=== PATIENT | male | born 1955 | race Caucasian/White ===

== ENCOUNTER → 2016-12-10 | Emergency (ER) | payer OTHER ==
--- NOTE | 2016-12-10 21:28 | PDOC ---
History of Present Illness - General History Source: Patient Exam Limitations: No Limitations - History of Present Illness Initial Comments: 12/10/16 21:44 The patient is a 61 year old male with a significant past medical history of diabetes and asthma who presents to the ED, via EMS, s/p injury earlier today. The patient reports he was reaching for something on a high shelf when the tip of a computer screen fell onto the top of his head 2 hours ago. Patient reports a laceration with associated pain to the top of his head. Denies headache. Denies loss of consciousness. Denies nausea or vomiting. Denies change in mental status. Denies any other symptoms. <Johnathan Golden - Last Filed: 12/10/16 21:44> <Emmy Moran - Last Filed: 12/10/16 23:27> - General Stated Complaint: HEAD INJURY Time Seen by Provider: 12/10/16 21:09 Past History <Johnathan Golden - Last Filed: 12/10/16 21:44> - Past Medical History Asthma: Yes Cancer: Yes Cardiac Disorders: Yes Diabetes: Yes GI Disorders: Yes (GERD) HTN: Yes Hypercholesterolemia: Yes Psychiatric Problems: Yes - Suicide/Smoking/Psychosocial Hx Smoking Status: No Smoking History: Former smoker Have you smoked in the past 12 months: No Number of Cigarettes Smoked Daily: 0 Hx Alcohol Use: No Drug/Substance Use Hx: No <Emmy Moran - Last Filed: 12/10/16 23:27> - Past Medical History Allergies/Adverse Reactions: Allergies Allergy/AdvReac Type Severity Reaction Status Date / Time No Known Allergies Allergy Verified 12/10/16 22:51 Home Medications: Ambulatory Orders Albuterol 0.083% Nebulizer Isabel [Ventolin 0.083%] 1 neb NEB QID PRN 12/08/11 Albuterol Sulfate Inhaler - [Ventolin Hfa *Inhaler*] 1 - 2 inh IH Q4H PRN Aripiprazole [Abilify] 20 mg PO DAILY 12/08/11 Aspirin Coated [Ecotrin] 81 mg PO DAILY 12/08/11 Calcium Carbonate/Vitamin D3 [Oysco 500+D Tablet] 1 tab PO BID 12/08/11 Cetirizine HCl [Zyrtec] 10 mg PO DAILY 12/08/11 Fenofibrate,Micronized [Fenofibrate] 134 mg PO DAILY 12/08/11 Losartan/Hydrochlorothiazide [Losartan-Hctz 100-12.5 mg Tab] 1 each PO DAILY 02/06 Metformin HCl [Glucophage] 850 mg PO BID 12/08/11 Montelukast Na [Singulair] 10 mg PO HS 12/08/11 Naproxen [Naprosyn] 500 mg PO BID 12/08/11 Omeprazole [Prilosec (RX)] 20 mg PO DAILY 12/08/11 Sodium Chloride [Saline Mist] 1 spray PO DAILY PRN MDD unkown 12/08/11 Review of Systems - Review of Systems Able to Perform ROS?: Yes Comments:: 12/10/16 21:44 CONSTITUTIONAL: No reported: Fever, Chills, Diaphoresis, Generalized Weakness, Malaise, Loss of Appetite HEENT: No reported: Rhinorrhea, Nasal Congestion, Throat Pain, Throat Swelling, Difficulty Swallowing, Mouth Swelling, Ear Pain, Eye Pain, Visual Changes CARDIOVASCULAR: No reported: Chest Pain, Syncope, Palpitations, Irregular Heart Rate, Lightheadedness, Peripheral Edema RESPIRATORY: No reported: Cough, Shortness of Breath, SOB with Exertion, Orthopnea, Wheezing , Stridor, Hemoptysis GASTROINTESTINAL: No reported: Abdominal pain, Abdominal Distension, Nausea, Vomiting, Diarrhea, Constipation, Melena, Hematochezia GENITOURINARY: No reported: Dysuria, Frequency, Urgency, Hesitancy, Flank Pain, Genital Pain MUSCULOSKELETAL: No reported: Myalgia, Arthralgia, Joint Swelling, Back pain, Neck Pain SKIN: + head injury No reported: Rash, Itching, Pallor HEMEATOLOGIC/IMMUNOLOGIC: No reported: Easy Bleeding, Easy Bruising, Lymphadenopathy, Frequent infections ENDOCRINE: No reported: Unexplained Weight Gain, Unexplained Weight Loss, Heat Intolerance , Cold Intolerance NEUROLOGIC: No reported: Headache, Focal Weakness, Paresthesias, Vertigo, Lightheadedness, Unsteady Gait, Seizure, Mental Status Changes, Incontinence PSYCHIATRIC: No reported: Anxiety, Depression All Other Systems: Reviewed and Negative <Johnathan Golden - Last Filed: 12/10/16 21:44> *Physical Exam - Physical Exam Comments: 12/10/16 21:44 GENERAL: Well developed, well nourished. Awake and alert. No acute distress. HEENT: Normocephalic, atraumatic. PERRLA, EOMI. No conjunctival pallor. Sclera are non- icteric. Moist mucous membranes. Oropharynx is clear. NECK: Supple. Full ROM. No JVD. Carotid pulses 2+ and symmetric, without bruits. No thyromegaly. No lymphadenopathy. CARDIOVASCULAR: Regular rate and rhythm. No murmurs, rubs, or gallops. Distal pulses are 2+ and symmetric. PULMONARY: No evidence of respiratory distress. Lungs clear to auscultation bilaterally. No wheezing, rales or rhonchi. ABDOMINAL: Soft. Non-tender. Non-distended. No rebound or guarding. No organomegaly. Normoactive bowel sounds. MUSCULOSKELETAL Normal range of motion at all joints. No bony deformities or tenderness. No CVA tenderness. EXTREMITIES: No cyanosis. No clubbing. No edema. No calf tenderness. SKIN: + 4 cm linear laceration on the top of his head Warm and dry. Normal capillary refill. No rashes. No jaundice. NEUROLOGICAL: Alert, awake, appropriate. Cranial nerves 2-12 intact. No deficits to light touch and temperature in face, upper extremities and lower extremities. No motor deficits in the in face, upper extremities and lower extremities. Normoreflexic in the upper and lower extremities. Normal speech. Toes are down- going bilaterally. Gait is normal without ataxia. PSYCHIATRIC: Cooperative. Good eye contact. Appropriate mood and affect. <Johnathan Golden - Last Filed: 12/10/16 21:44> Medical Decision Making - Medical Decision Making 12/10/16 23:04 cannot find patient for his ct scan head-apparently he eloped <Emmy Moran - Last Filed: 12/10/16 23:27> *DC/Admit/Observation/Transfer - Attestations Scribe Attestion: 12/10/16 21:44 Documentation prepared by Johnathan Golden, acting as lead medical technologist for Emmy Moran MD <Johnathan Golden - Last Filed: 12/10/16 21:44> <Emmy Moran - Last Filed: 12/10/16 23:27> Diagnosis at time of Disposition: Laceration of scalp Qualifiers: Encounter type: initial encounter Qualified Code(s): S01.01XA - Laceration without foreign body of scalp, initial encounter; S01.01XA - Laceration without foreign body of scalp, initial encounter - Discharge Dispostion Disposition: ELOPED
[2016-12-10 22:49] VITALS: BP 134/95; PULSE 88; TEMP 97.7; BMI 31.1
== END | disposition left against medical advice (07) ==
LOC: JER 21:01 → SUPCPDRO 21:01
DX: S01.01XA Laceration without foreign body of scalp, initial encounter (principal); W20.8XXA Other cause of strike by thrown, projected or falling object, initial encounter; Y93.89 Activity, other specified; Y92.038 Other place in apartment as the place of occurrence of the external cause; Y99.8 Other external cause status
CPT/HCPCS: 99281-25